=== PATIENT | female | born 1990 | race Two or more races ===

== ENCOUNTER 2017-12-31 08:55 | Emergency (ER) | payer OTHER ==
[2017-12-31] MEDS ORDERED: HYDROcodone/APAP 5/325MG 1 TAB TABLET PO ONE (09:30)
[2017-12-31] MEDS ORDERED: NAPR-683 PO (09:36)
[2017-12-31] MEDS ORDERED: Percogesic PO (09:36)
--- NOTE | 2017-12-31 09:39 | PHYS DOC ---
Past History Past Medical History: Arthritis, Asthma, Depression Additional Past Medical Histor: endometriosis Past Surgical History: Other Alcohol Use: None Drug Use: None Adult General Chief Complaint Chief Complaint: ABDOMINAL PAIN HPI HPI Patient is a 27 year old female who presents with complaining of lower abdominal pain for the last 3 days as a cramping pain with radiation to her back like her previous episodes of endometriosis pain. Patient states she started her menstruation 5 days ago and for the last 3 days had lower abdominal pain that does not getting better with [id number] medication. Patient states she has diagnosis of endometriosis with the same pain. Patient denies nausea, vomiting, diarrhea, constipation, urinary symptoms, . Review of Systems Review of Systems Constitutional: Denies fever or chills [] Eyes: Denies change in visual acuity, redness, or eye pain [] HENT: Denies nasal congestion or sore throat [] Respiratory: Denies cough or shortness of breath [] Cardiovascular: No additional information not addressed in HPI [] GI: Reports abdominal pain, denies nausea, vomiting, bloody stools or diarrhea [ ] : Denies dysuria or hematuria [] Musculoskeletal: Denies back pain or joint pain [] Integument: Denies rash or skin lesions [] Neurologic: Denies headache, focal weakness or sensory changes [] Endocrine: Denies polyuria or polydipsia [] All other systems were reviewed and found to be within normal limits, except as documented in this note. Current Medications Current Medications Current Medications Medications (Trade) Dose Ordered Sig/Vtio Start Time Stop Time Status Last Admin Dose Admin Acetaminophen/ Hydrocodone Bitart (Lortab 5/325) 1 tab 1X ONCE 12/31/17 09:30 12/31/17 09:31 Allergies Allergies Allergies Coded Allergies Type Severity Reaction Last Updated Verified latex Allergy Mild Unknown 12/31/17 Yes Physical Exam Physical Exam Constitutional: Well developed, well nourished, mild, non-toxic appearance. [] HENT: Normocephalic, atraumatic. Eyes: PERRLA, EOMI, conjunctiva normal, no discharge. [] Neck: Normal range of motion, no tenderness, supple, no stridor. [] Cardiovascular:Heart rate regular rhythm, no murmur [] Lungs & Thorax: Bilateral breath sounds clear to auscultation [] Abdomen: Bowel sounds normal, soft, no tenderness, no masses, no pulsatile masses. [] Skin: Warm, dry, no erythema, no rash. [] Back: No tenderness, no CVA tenderness. [] Extremities: No tenderness, no cyanosis, no clubbing, ROM intact, no edema. [] Neurologic: Alert and oriented X 3, normal motor function, normal sensory function, no focal deficits noted. [] Psychologic: Affect anxious, judgement normal, mood normal. [] Current Patient Data Vital Signs Vital Signs Date Time Temp Pulse Resp B/P (MAP) Pulse Ox O2 Delivery O2 Flow Rate FiO2 12/31/17 09:11 99.0 94 20 100 Room Air EKG EKG [] Radiology/Procedures Radiology/Procedures [] Course & Med Decision Making Course & Med Decision Making Evaluation of patient in ER showed 27-year-old female patient with complaining of endometriosis lower abdominal pain for 3 days like her previous episodes of endometriosis. Patient stated she is allergic to latex only but when I offered Toradol she states she cannot get this medicine because she is allergic to Toradol. I offered her Tylenol No. 3 and she states she is allergic to codeine also. Patient asking for Percocet because she was prescribed Percocet in her previous emergency room visits. She had 1 dose of Willcox in ER and had prescription of Percogesic and Naprosyn but patient was upset about the prescription and is to take her grandmother told her Percogesic is not as strong enough for her and she already has Naprosyn at home. Patient instructed to follow up with her primary care physician or [employer] for chronic endometriosis pain. Dragon Disclaimer Dragon Disclaimer This electronic medical record was generated, in whole or in part, using a voice recognition dictation system. Departure Departure: Impression: Primary Impression: Dysmenorrhea Additional Impression: History of endometriosis Disposition: HOME, SELF-CARE (at 0945) Condition: STABLE Referrals: AMADOU CLARKE MD (PCP) Patient Instructions: Dysmenorrhea, Endometriosis Additional Instructions: Drink plenty of liquids Follow-up with your primary care physician in 3-5 days Return to ER if not getting better Scripts [Percogesic] No Conflict Check 1 TAB PO QID PRN for PAIN, #10 Prov: EULALIO LYNN MD 12/31/17 Naproxen (NAPROSYN) 500 Mg Tablet 1 TAB PO BID for pain, #20 TAB Prov: EULALIO LYNN MD 12/31/17 Problem Qualifiers EULALIO LYNN MD Dec 31, 2017 09:39
[2017-12-31 09:53] VITALS: BP 132/62
== END 2017-12-31 09:50 | disposition home or self-care (01) ==
LOC: ER 08:55
DX: N94.6 Dysmenorrhea, unspecified (principal); M19.90 Unspecified osteoarthritis, unspecified site; J45.909 Unspecified asthma, uncomplicated; F32.9 Major depressive disorder, single episode, unspecified; Z91.040 Latex allergy status
CPT/HCPCS: 99282